=== PATIENT | female | born 1940 | race Caucasian/White ===

== ENCOUNTER 2020-07-07 17:26 | Emergency (ER) | payer MEDICARE ==
[2020-07-07] MEDS ORDERED: FOSAMAX PLUS PO (19:42)
[2020-07-07] MEDS ORDERED: ZETIA10 MG PO (19:42)
[2020-07-07] MEDS ORDERED: LEVOTHYROXIN50 MCG PO (19:42)
[2020-07-07] MEDS ORDERED: REMERON15 MG PO (19:43)
[2020-07-07] MEDS ORDERED: MELATONIN5 M3 PO (19:43)
[2020-07-07] MEDS ORDERED: TRINTELLIX10 MG PO (19:43)
[2020-07-07] MEDS ORDERED: ATORVASTATIN CA10 MG PO (19:44)
[2020-07-07] MEDS ORDERED: TRAMADOL HYDROC50 MG PO (19:44)
[2020-07-07] MEDS ORDERED: ATIVAN1 M1 PO (19:44)
[2020-07-07] MEDS ORDERED: FLEXERIL5 M1 PO (19:48)
[2020-07-07] MEDS ORDERED: NEURONTIN300 MG PO (19:48)
[2020-07-07] MEDS ORDERED: TYLENOL # 31 TA1 PO (19:48)
== END 2020-07-07 18:20 | disposition left against medical advice (07) ==
LOC: ED 17:26 → LWOBS 18:20
DX: Z53.21 Procedure and treatment not carried out due to patient leaving prior to being seen by health care provider (principal)

== ENCOUNTER 2020-07-07 18:43 | Emergency (ER) | payer MEDICARE ==
[~2020-07-07] VITALS: Ht 162.6 cm; Wt 54.4 kg
[2020-07-07] MEDS ORDERED: ZETIA10 MG PO (19:42)
[2020-07-07] MEDS ORDERED: LEVOTHYROXIN50 MCG PO (19:42)
[2020-07-07] MEDS ORDERED: FOSAMAX PLUS PO (19:42)
[2020-07-07] MEDS ORDERED: REMERON15 MG PO (19:43)
[2020-07-07] MEDS ORDERED: MELATONIN5 M3 PO (19:43)
[2020-07-07] MEDS ORDERED: TRINTELLIX10 MG PO (19:43)
[2020-07-07] MEDS ORDERED: TRAMADOL HYDROC50 MG PO (19:44)
[2020-07-07] MEDS ORDERED: ATIVAN1 M1 PO (19:44)
[2020-07-07] MEDS ORDERED: ATORVASTATIN CA10 MG PO (19:44)
[2020-07-07] MEDS ORDERED: TYLENOL # 31 TA1 PO (19:48)
[2020-07-07] MEDS ORDERED: NEURONTIN300 MG PO (19:48)
[2020-07-07] MEDS ORDERED: FLEXERIL5 M1 PO (19:48)
[2020-07-07 20:09] VITALS: BP 171/93
== END 2020-07-07 20:09 | disposition home or self-care (01) ==
LOC: ED 18:43
DX: M54.16 Radiculopathy, lumbar region (principal); E03.9 Hypothyroidism, unspecified